=== PATIENT | female | born 1995 | race Caucasian/White ===

== ENCOUNTER 2019-04-23 22:44 | Emergency (ER) | payer BC ==
[~2019-04-23] VITALS: Ht 157.5 cm; Wt 58.1 kg
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
[2019-04-24 00:16] LABS: *URINE HCG, QUAL NEGATIVE (NEGATIVE)
--- NOTE | 2019-04-24 00:18 | NUR ---
Patient discharged to home in stable conditon WITH FAMILY TAKING PATIENT HOME. Written and verbal after care instructions given. Patient verbalizes understanding of instructions. WALKED OUT OF ER WITH NO DISTRESS NOTED.
[2019-04-24 00:19] VITALS: BP 112/67
== END 2019-04-24 00:23 | disposition home or self-care (01) ==
LOC: ER 22:44
DX: S91.351A Open bite, right foot, initial encounter (principal); W54.0XXA Bitten by dog, initial encounter; Y93.89 Activity, other specified; Y92.89 Other specified places as the place of occurrence of the external cause; Y99.8 Other external cause status
CPT/HCPCS: 84703; A4217; A4663